=== PATIENT | female | born 1990 | race Caucasian/White ===

== ENCOUNTER 2023-03-08 10:11 | Outpatient (CLI) | payer OTHER ==
[2023-03-08] MEDS ORDERED: PRENATAL TABLE1 EAC1 PO (11:12)
== END 2023-03-09 17:35 | disposition home or self-care (01) ==
LOC: OBS/DEL 10:11
PROVIDERS: ATTEND Obstetrics & Gynecology
DX: O26.892 Other specified pregnancy related conditions, second trimester (principal); R10.2 Pelvic and perineal pain; Z3A.25 25 weeks gestation of pregnancy; Z88.3 Allergy status to other anti-infective agents; Z91.018 Allergy to other foods